=== PATIENT | female | born 1950 | race Caucasian/White ===

== ENCOUNTER → 2023-08-22 12:51 | Outpatient (REF) | payer MEDICARE, OTHER, SELFPAY | LOC: WDC 12:51 | PROVIDERS: ATTENDING PHYSICIAN Family Medicine | DX: Z12.31 Encounter for screening mammogram for malignant neoplasm of breast (principal) | CPT/HCPCS: 77063; 77067 ==

== ENCOUNTER 2024-05-19 10:37 | Emergency (ER) | payer MEDICARE, OTHER, SELFPAY ==
[2024-05-19 10:48] VITALS: BP 169/91
--- NOTE | 2024-05-19 12:16 | ED.GENMED ---
History of Present Illness
General
Chief Complaint: Flank Pain
Time Seen by Provider: 05/19/24 11:19
History of Present Illness
History of Present Illness:
73-year-old female with prior history of kidney stone 40 years ago presenting for acute onset of left flank pain. Patient reports symptom started this morning with nausea. She notes urinary hesitancy. Pain is in the left flank with radiation to
her abdomen. She tried ibuprofen for pain without relief. Denies any recent fever. Denies chest pain or difficulty breathing. Denies any changes in her stool. Denies additional acute medical complaints
Phy Exam
Physical Exam
Physical Exam:
General: Well-appearing, no clinical signs of dehydration, nontoxic and in no acute distress
HEENT: protecting airway
Neck: appears supple
CV: Normal heart rate, regular rhythm
Resp: No accessory muscle use, no increased work of breathing
Abd: Soft and non-distended, no tenderness to palpation, left CVA tenderness
Extremities: No deformities, no swelling
Neuro: alert, no focal neurologic deficit
: deferred
Rectal: deferred
Psych: Normal affect
Skin: Intact
Course
Orders/Labs/Results
Orders:
Orders
05/19/24 11:43
CT Abd/pel Without Iv Or Oral Urgent
Comment:
Reason For Exam: L-flank pain, hx stones
0.9% Sodium Chloride 1000 ml [Nss] 1,000 ml IV BOLUS
Ketorolac [Toradol] 15 mg IV NOW STA
Ondansetron Injectable [Zofran] 4 mg IV NOW STA
05/19/24 12:56
Complete Blood Count/With Diff Urgent
Comprehensive Metabolic Panel Urgent
Urinalysis Reflex To Culture Urgent
Date Specimen was Collected: 05/19/24
Time Specimen was Collected: 12:42
Urine Microscopic Reflex Cult Urgent
05/19/24 14:54
Tamsulosin [Flomax] 0.4 mg PO NOW STA
Abnormal Lab Results
05/19/24
12:56
WBC 13.4 H 10^3/uL
(4.8-10.8)
MCH 31.2 H pg
(27.0-31.0)
Abs Immat Gran (auto) 0.1 H 10^3/uL
(0-0.05)
Absolute Neuts (auto) 11.4 H 10^3/uL
(1.4-6.5)
Neutrophils % 85.5 H %
(42.2-75.2)
Lymphocytes % 9.0 L %
(20.5-51.1)
BUN 21 H mg/dl
(7-17)
Glucose 137 H mg/dl
(70-99)
Urine Ketones 1+ A
(Negative)
Ur Occult Blood Reflex Trace A
(Negative)
Urine RBC 3-6 A /HPF
(0-2)
Urine Bacteria (Reflex) Few A
(Negative)
05/19/24 12:56
05/19/24 12:56
Vital Signs
Initial and Last Documented VS:
Initial Vital Signs
Temp Pulse Resp BP Pulse Ox
98.3 F 59 18 169/91 100
05/19/24 10:48 05/19/24 10:48 05/19/24 10:48 05/19/24 10:48 05/19/24 10:48
Last Documented Vital Signs
Temp Pulse Resp BP Pulse Ox
98.3 F 59 18 169/91 100
05/19/24 10:48 05/19/24 10:48 05/19/24 10:48 05/19/24 10:48 05/19/24 10:48
MDM/Problems Addressed
MDM/Problems Addressed:
73-year-old female with prior history of kidney stones presenting for acute onset of left flank pain. Vital signs on arrival are significant for hypertension.
On exam, patient is uncomfortable in appearance secondary to pain. Symptoms appear most consistent with nephrolithiasis. Patient feels like she is having difficulty passing her urine. Bladder scan obtained, without significant retention. Plan
for laboratory analysis, urinalysis, CT imaging. Toradol, Zofran, fluids administered for pain. Will reassess for improvement.
14:50 -Labs show mild leukocytosis, however urine without any sign of infection. CT shows 4 mm stone at UVJ with some perinephric stranding and ureteral edema. On reassessment, patient's pain is controlled. At this time without present concern
for infected stone. Feel stable for discharge with close and will follow-up with urology. Will prescribe pain medication. Will prescribe Flomax. Strict return precautions communicated including worsening pain, development of fever, intractable
vomiting.
*Critical Care Note
Total Time (30-74mins, 75-104mins- exclusive of procedures): Not Applicable
ED Attending Note
-
Portions of this chart may have been created with voice recognition software.� Occasional wrong word or��sound alike� substitutions may have occurred due to the inherent limitations of voice recognition software.
Discharge Plan
Departure
Referrals:
Marina Workman DO [Family Provider] -
Interventions
Interventions:
*Risk Screen - Suicide Last Done: 05/19/24 10:48
*General Assessment Last Done: 05/19/24 10:48
*Neglect/Abuse Screening Last Done: 05/19/24 10:48
ED- Fall Risk Assessment Last Done: 05/19/24 14:17
*ED COVID-19 Vaccine History Last Done: 05/19/24 12:56
AM-Dkcdrb-Kyfraryczk Assessment Last Done: 05/19/24 14:18
ED-Female Genitourinary Assessment Last Done: 05/19/24 14:18
Discharge Date and Time
Print Language: POLISH
[2024-05-19] MEDS: TORADOL 15 MG IV (12:43)
[2024-05-19] MEDS: ZOFRAN 4 MG IV (12:43)
[2024-05-19] MEDS: NSS 1000 IV (12:43)
[2024-05-19 12:49] VITALS: BMI 28.4
[2024-05-19 13:09] LABS: % Basophils 0.3 % (0-2); % Immature Granulocytes 0.5 % (0-0.5); % Monocytes 4.7 % (1.7-9.3); % Neutrophils 85.5 % (42.2-75.2); Absolute Immature Granulocytes 0.1 10^3/uL (0-0.05); Absolute Lymphocytes 1.2 10^3/uL (1.2-3.4); Absolute Monocytes 0.6 10^3/uL (0.1-0.6); Absolute Neutrophils 11.4 10^3/uL (1.4-6.5); Hematocrit 45.3 % (37.0-47.0); Hemoglobin 15.6 g/dL (12.0-16.0); Mean Corp Hgb Conc. 34.4 g/dL (33.0-37.0); Mean Corpuscular Hgb 31.2 pg (27.0-31.0); Mean Corpuscular Volume 90.6 fL (81.0-99.0); Mean Platelet Volume 8.4 fL (7.4-10.4); Nucleated Red Blood Cells % 0 %; Platelet Count 302 10^3/uL (130-400); Red Cell Dist. Width 12.2 % (11.5-14.5); White Blood Cell Count 13.4 10^3/uL (4.8-10.8)
[2024-05-19 13:10] LABS: Urine Albumin Trace (Neg - Trace); Urine Bilirubin Negative (Negative); Urine Character Slightly Cloudy (Clear); Urine Color Yellow; Urine Glucose Negative (Negative); Urine Ketone 1+ (Negative); Urine Leukocyte Negative (Negative); Urine Nitrite Negative (Negative); Urine Occult Blood Trace (Negative); Urine Specific Gravity 1.015 (<1.030); Urine Urobilinogen Negative (Neg - 1+)
[2024-05-19 13:21] LABS: ALT (SGPT) 19 U/L (0-35); AST (SGOT) 24 U/L (14-36); Albumin 4.5 g/dl (3.5-5.0); Alkaline Phosphatase 74 U/L (38-126); Blood Urea Nitrogen 21 mg/dl (7-17); Calcium 9.7 mg/dl (8.4-10.2); Carbon Dioxide 28 mmol/L (22-30); Chloride 101 mmol/L (98-107); Estimated Creatinine Clearance 58 ml/min; Glucose 137 mg/dl (70-99); Potassium 4.7 mmol/L (3.5-5.1); Sodium 137 mmol/L (135-145); Total Bilirubin 0.7 mg/dl (0.2-1.3); eGFR > 60.00
[2024-05-19 14:00] VITALS: BP 144/72
[2024-05-19 14:09] LABS: Urine Amorphous Seen; Urine Squamous Cell 16-20 /LPF (Few)
[2024-05-19 14:10] LABS: Urine Bacteria Few (Negative); Urine White Cell 0-2 /HPF (0-5)
[2024-05-19] MEDS: FLOMAX 0.4 MG PO (15:11)
== END 2024-05-19 16:01 | disposition home or self-care (01) ==
LOC: EMR 10:37
PROVIDERS: EMERGENCY PHYSICIAN Student in an Organized Health Care Education/Training Program; FAMILY PHYSICIAN Family Medicine
DX: N13.2 Hydronephrosis with renal and ureteral calculous obstruction (principal)
CPT/HCPCS: 96374; 96375; 96361; 99284; 74176; 80053; 81003; 81015; 85025

== ENCOUNTER → 2024-07-11 09:50 | Outpatient (REF) | payer MEDICARE, OTHER, SELFPAY | LOC: HWRAD 09:50 | PROVIDERS: ATTENDING PHYSICIAN Specialist; FAMILY PHYSICIAN Family Medicine; REFERRING PHYSICIAN Internal Medicine Endocrinology, Diabetes & Metabolism | DX: N20.0 Calculus of kidney (principal); M81.0 Age-related osteoporosis without current pathological fracture | CPT/HCPCS: 74176; 77080 ==

== ENCOUNTER → 2024-09-26 11:00 | Outpatient (REF) | payer MEDICARE, OTHER, SELFPAY | LOC: WDC 11:00 | PROVIDERS: ATTENDING PHYSICIAN Family Medicine | DX: Z12.31 Encounter for screening mammogram for malignant neoplasm of breast (principal) | CPT/HCPCS: 77063; 77067 ==

== ENCOUNTER → 2025-03-07 14:54 | Outpatient (REF) | payer MEDICARE, OTHER, SELFPAY | LOC: HWRCS 14:54 | PROVIDERS: ATTENDING PHYSICIAN Internal Medicine Cardiovascular Disease; FAMILY PHYSICIAN Family Medicine | DX: I44.7 Left bundle-branch block, unspecified (principal) | CPT/HCPCS: 93306 ==

== ENCOUNTER → 2025-03-15 08:20 | Outpatient (REF) | payer MEDICARE, OTHER, SELFPAY | LOC: HWRCS 08:20 | PROVIDERS: ATTENDING PHYSICIAN Internal Medicine Cardiovascular Disease; FAMILY PHYSICIAN Family Medicine | DX: I44.7 Left bundle-branch block, unspecified (principal); R94.31 Abnormal electrocardiogram [ECG] [EKG] | CPT/HCPCS: 78452; 93017; A9500; J2785 ==